=== PATIENT | male | born 2000 | race Caucasian/White ===

== ENCOUNTER 2023-11-10 22:36 | Emergency (ER) | payer OTHER ==
[~2023-11-10] VITALS: Ht 180.3 cm; Wt 103.2 kg
[~2023-11-10 22:36] MED LIST: MELOXICAM15 MG PO
[2023-11-10 23:23] LABS: HEMOGLOBIN 15.9 g/dL (12.0-18.0); MCH 32.5 (27-36)
[2023-11-10 23:26] LABS: BASOPHILS 0.2 % (0-2); EOSINOPHILS 3.3 % (0-6); HEMATOCRIT 47.7 % (35.0-50.0); MCHC 33.4 g/dl (30-36); MCV 97.3 fl (81-99); MONOCYTES 7.7 % (0-12); NEUTROPHILS 63.8 % (39-80); PLATELET COUNT 331 K/uL (140-440)
[2023-11-10 23:36] LABS: ALBUMIN 4.7 g/dL (3.4-5.0); ALBUMIN/GLOBULIN RATIO 1.52 (1.1-2.4); ANION GAP 16.6 (7-21); BILIRUBIN, TOTAL 0.3 ng/dL (0.2-1.0); BUN/CREATININE RATIO 7.54 (6.0-28.6); CALCIUM 8.9 mg/dL (8.5-10.1); CREATININE, SERUM 1.06 mg/dL (0.70-1.30); POTASSIUM 3.6 mmol/L (3.5-5.1); PROTEIN, TOTAL 7.8 g/dL (6.4-8.2)
[2023-11-11 00:45] VITALS: BP 169/97
== END 2023-11-11 00:40 | disposition home or self-care (01) ==
LOC: ED 22:36
PROVIDERS: Internal Medicine
DX: F10.129 Alcohol abuse with intoxication, unspecified (principal); S01.01XA Laceration without foreign body of scalp, initial encounter; S61.212A Laceration without foreign body of right middle finger without damage to nail, initial encounter; W19.XXXA Unspecified fall, initial encounter; Z79.899 Other long term (current) drug therapy
CPT/HCPCS: 12002; 36415; 70450; 72125; 80053; 83735; 85025; 99283-25; G0480; J3411; J7030

== ENCOUNTER 2024-04-10 17:30 | Emergency (ER) | payer OTHER ==
[~2024-04-10] VITALS: Ht 180.3 cm; Wt 108.1 kg
[2024-04-10 18:07] LABS: BASOPHILS 3.2 % (0-2); EOSINOPHILS 0.7 % (0-6); HEMATOCRIT 50.1 % (35.0-50.0); HEMOGLOBIN 17.3 g/dL (12.0-18.0); LYMPHOCYTES 13.4 % (24-44); MCH 32.9 (27-36); MCHC 34.5 g/dl (30-36); MCV 95.3 fl (81-99); MONOCYTES 5.8 % (0-12); NEUTROPHILS 76.9 % (39-80); PLATELET COUNT 217 K/uL (140-440); RBC 5.26 M/ul (4.3-5.7); RDW 14.5 (10.5-15.0)
[2024-04-10] MEDS ORDERED: SODIUM CHLORIDE 0.9% 1,000 ML IV PRN (18:15)
[2024-04-10 18:16] LABS: ALBUMIN 4.9 g/dL (3.4-5.0); ALBUMIN/GLOBULIN RATIO 1.44 (1.1-2.4); ANION GAP 18.5 (7-21); BILIRUBIN, TOTAL 0.5 ng/dL (0.2-1.0); BUN/CREATININE RATIO 8.25 (6.0-28.6); CALCIUM 9.5 mg/dL (8.5-10.1); CREATININE, SERUM 1.09 mg/dL (0.70-1.30); POTASSIUM 3.5 mmol/L (3.5-5.1); PROTEIN, TOTAL 8.3 g/dL (6.4-8.2)
[2024-04-10 18:22] LABS: BILIRUBIN, URINE NEGATIVE (negative); BLOOD/HGB, URINE TRACE-I (Negative); KETONE, URINE NEGATIVE (Negative); LEUK ESTERASE, URINE NEGATIVE (negative); NITRITE, URINE NEGATIVE (negative)
[2024-04-10 18:36] LABS: AMPHETAMINES, URINE NEGATIVE (NEGATIVE); BARBITURATES, URINE NEGATIVE (NEGATIVE); BENZODIAZEPINE, URINE NEGATIVE (NEGATIVE); BUPRENORPHINE, URINE NEGATIVE (NEGATIVE); CANNABINOID, URINE POSITIVE (NEGATIVE); COCAINE, URINE NEGATIVE (NEGATIVE); ECSTASY, URINE NEGATIVE (NEGATIVE); FENTANYL, URINE NEGATIVE (NEGATIVE); METHADONE, URINE NEGATIVE (NEGATIVE); OPIATES, URINE NEGATIVE (NEGATIVE); OXYCODONE, URINE NEGATIVE (NEGATIVE); PHENCYCLIDINE, URINE NEGATIVE (NEGATIVE)
[2024-04-10 18:39] LABS: BACTERIA, URINE NONE SEEN /hpf (negative); CASTS, URINE NONE SEEN \\lpf; COLLECTION TYPE, URINE CLEAN CATCH; CRYSTALS, URINE NONE SEEN (0-1+); EPITHELIAL CELLS, URINE 0 /lpf (0-1+); RED BLOOD CELLS, URINE 0-1 /hpf (0-5); REFLEX CULTURE, URINE No (No); WHITE BLOOD CELLS, URINE 0-1 /HPF (0-5)
[2024-04-10 19:17] VITALS: BP 156/82
--- NOTE | 2024-04-11 12:00 | EKG ---
[facility] [address] [place], [place] [address] Signed Sinus tachycardia Otherwise normal ECG No previous ECGs available Confirmed by Apolonia Jackson ([id number]) on 04/11/2024 12:00:28 PM Electronically Signed By: APOLONIA JACKSON MD 04/11/24 1200 PATIENT NAME: BROOKE MONTEJO NORA Electrocardiogram DATE OF : [birth year] PHYSICIAN: APOLONIA JACKSON MD REPORT #: [id number] REPORT IS CONFIDENTIAL AND NOT TO BE RELEASED WITHOUT AUTHORIZATION
== END 2024-04-10 19:17 | disposition home or self-care (01) ==
LOC: ED 17:30
PROVIDERS: Emergency Medicine
DX: F10.90 Alcohol use, unspecified, uncomplicated (principal); R00.0 Tachycardia, unspecified; M79.642 Pain in left hand; K76.0 Fatty (change of) liver, not elsewhere classified; F17.210 Nicotine dependence, cigarettes, uncomplicated
CPT/HCPCS: 36415; 71260; 73130; 74177; 80053; 80307; 81001; 83690; 83735; 85025; 93005; 93010; 99284-25; J7030; Q9967

== ENCOUNTER 2025-02-11 15:28 | Emergency (ER) | payer OTHER ==
[~2025-02-11] VITALS: Ht 180.3 cm; Wt 103.3 kg
--- NOTE | ~2025-02-11 | EKG ---
[facility] [address] [place], [place] [address] Draft EK completed, results pending confirmation PATIENT NAME: BROOKE MONTEJO Electrocardiogram DATE OF : [birth year] PHYSICIAN: PRELIMINARY REPORT #: [id number] REPORT IS CONFIDENTIAL AND NOT TO BE RELEASED WITHOUT AUTHORIZATION
[2025-02-11 16:13] LABS: BASOPHILS 0.8 % (0-2); EOSINOPHILS 2.3 % (0-6); HEMATOCRIT 47.9 % (35.0-50.0); HEMOGLOBIN 16.6 g/dL (12.0-18.0); LYMPHOCYTES 31.4 % (24-44); MCH 35.7 (27-36); MCHC 34.7 g/dl (30-36); MCV 103.1 fl (81-99); MONOCYTES 6.5 % (0-12); PLATELET COUNT 238 K/uL (140-440); RBC 4.65 M/ul (4.3-5.7); RDW 14.1 (10.5-15.0)
[2025-02-11 16:21] LABS: ALBUMIN 4.4 g/dL (3.4-5.0); ALBUMIN/GLOBULIN RATIO 1.29 (1.1-2.4); ANION GAP 14.8 (7-21); BILIRUBIN, TOTAL 0.5 mg/dL (0.2-1.0); BUN/CREATININE RATIO 3.89 (6.0-28.6); CALCIUM 9.3 mg/dL (8.5-10.1); CREATININE, SERUM 0.77 mg/dL (0.70-1.30); POTASSIUM 3.8 mmol/L (3.5-5.1); PROTEIN, TOTAL 7.8 g/dL (6.4-8.2)
[2025-02-11] MEDS ORDERED: NALTREXONE HCL50 MG PO (17:27)
[2025-02-11] MEDS ORDERED: CHLORDIAZEPOXID25 MG PO (17:27)
[2025-02-11] MEDS ORDERED: ONDANSETRON ODT8 MG PO (17:27)
[2025-02-11 17:29] VITALS: BP 134/77
== END 2025-02-11 17:36 | disposition home or self-care (01) ==
LOC: ED 15:28
PROVIDERS: Emergency Medicine
DX: F10.10 Alcohol abuse, uncomplicated (principal)
CPT/HCPCS: 36415; 71045; 80053; 83690; 85025; 93005; 93010; 99285-25

== ENCOUNTER 2025-03-16 22:12 | Emergency (ER) | payer OTHER ==
[~2025-03-16] VITALS: Ht 180.3 cm; Wt 101.8 kg
[~2025-03-16 22:12] MED LIST changes: +CHLORDIAZEPOXID25 MG PO; +NALTREXONE HCL50 MG PO; +ONDANSETRON ODT8 MG PO
[2025-03-16] MEDS ORDERED: NEOMYCIN/POLYMYXIN/HYDROCORT 10 ML HOME.PACK OTIC ONE (22:45)
[2025-03-16] MEDS ORDERED: ALBUTEROL/IPRATROPIUM 3 ML NEB INH ONE (22:45)
[2025-03-16] MEDS ORDERED: HYDROCODONE/ACETA 5/325 TAB PO ONE (23:15)
[2025-03-16] MEDS ORDERED: INHALER, ASSIST DEVICES 1 EACH SPACER MISC ONE (23:45)
[2025-03-16] MEDS ORDERED: methylPREDNISolone 4 MG HOME.PACK PO ONE (23:45)
[2025-03-16] MEDS ORDERED: ALBUTEROL SULFATE 8 GM HOME.PACK INH ONE (23:45)
[2025-03-16 23:55] VITALS: BP 158/89
== END 2025-03-16 23:56 | disposition home or self-care (01) ==
LOC: ED 22:12
DX: H60.92 Unspecified otitis externa, left ear (principal); J40 Bronchitis, not specified as acute or chronic; Z79.899 Other long term (current) drug therapy
CPT/HCPCS: 71045; 94640; 94664; 99283-25